=== PATIENT | male | born 1980 | race Caucasian/White ===

== ENCOUNTER 2017-05-30 12:32 | Emergency (ER) | payer MEDICAID, OTHER ==
[2017-05-30] MEDS ORDERED: ONDANSETRON ODT 4 MG TAB PO STA (13:21)
[2017-05-30] MEDS ORDERED: IBUPROFEN 800 MG TAB PO STA (13:21)
[2017-05-30] MEDS ORDERED: ACETAMINOPHEN TAB 500 MG TAB PO STA (13:21)
--- NOTE | 2017-05-30 13:25 | ED ---
General Adult HPI - General Chief complaint: Upper Respiratory Infection Stated complaint: Fever, Congested Time Seen by Provider: 05/30/17 13:09 Source: patient Mode of arrival: wheelchair Limitations: no limitations - History of Present Illness Initial comments: Patient is a 36-year-old previously healthy male who presents with a chief complaint of an upper respiratory infection and fever for 4 days. The patient states that his symptoms started with cough and headache, and later developed a fever. Patient states that his highest fever at home with 103. Patient states that today he had a fever when he woke up however it is resolved on its own without any medication. He cannot identify any inciting incidences. The patient notes that his headache is exacerbated when he coughs. There are no alleviating factors. Timing is been constant. - Related Data Home Medications Medication Instructions Recorded Confirmed Acetaminophen Tab [Tylenol Tab] 1,000 mg PO Q6HR PRN 05/30/17 05/30/17 Buprenorphine HCl [Subutex] 8 mg SL DAILY 05/30/17 05/30/17 Citalopram Hydrobromide [CeleXA] 20 mg PO DAILY 05/30/17 05/30/17 Ibuprofen [Motrin] 400 mg PO Q6HR PRN 05/30/17 05/30/17 Previous Rx's Medication Instructions Recorded Ondansetron Odt [Zofran Odt] 4 mg PO Q8HR PRN #20 tab 05/30/17 Allergies Allergy/AdvReac Type Severity Reaction Status Date / Time Penicillins Allergy Unknown Verified 05/30/17 13:08 Review of Systems ROS Statement: Those systems with pertinent positive or pertinent negative responses have been documented in the HPI. ROS Other: All systems not noted in ROS Statement are negative. Constitutional: Reports: fever, chills ENT: Reports: throat pain Respiratory: Reports: cough Gastrointestinal: Reports: nausea Neurological: Reports: headache Past Medical History Past Medical History: No Reported History History of Any Multi-Drug Resistant Organisms: None Reported Past Surgical History: Orthopedic Surgery Additional Past Surgical History / Comment(s): left hand surgery Past Anesthesia/Blood Transfusion Reactions: No Reported Reaction Past Psychological History: No Psychological Hx Reported Smoking Status: Current every day smoker Past Alcohol Use History: None Reported Past Drug Use History: Marijuana - Past Family History Mother Family Medical History: Hypertension Additional Family Medical History / Comment(s): Mother is alive at age 52. Father Additional Family Medical History / Comment(s): Patient's father has been in senior living and he does not know anything about him. Brother(s) Additional Family Medical History / Comment(s): Patient has 1 brother that is healthy. He has one sister that is healthy. He has one son that is 18 years of age and is healthy. He has one daughter that his diabetes mellitus type 1 General Exam Limitations: no limitations General appearance: alert, in no apparent distress Head exam: Present: atraumatic, normocephalic Eye exam: Present: PERRL ENT exam: Present: normal oropharynx, mucous membranes moist, TM's normal bilaterally Neck exam: Present: normal inspection Respiratory exam: Present: normal lung sounds bilaterally Cardiovascular Exam: Present: regular rate, normal rhythm GI/Abdominal exam: Present: soft. Absent: distended, tenderness Back exam: Present: normal inspection Neurological exam: Present: alert, altered Psychiatric exam: Present: normal affect, normal mood, depressed Skin exam: Present: warm, dry, intact Course Vital Signs 05/30/17 05/30/17 05/30/17 12:46 14:15 14:17 Temperature 98.8 F Pulse Rate 76 Respiratory 18 18 18 Rate Blood Pressure 116/79 O2 Sat by Pulse 100 Oximetry Medical Decision Making - Medical Decision Making Patient presents with a chief complaint of fever and upper respiratory symptoms for 4 days. Patient will go for a chest x-ray and had a flu PCR. He was given Motrin and Tylenol and Zofran. On initial evaluation, vital signs are stable, patient is in no acute distress. 2:34 PM Chest x-ray shows no acute process. Influenza A is positive. Discussed the results of the patient, he states he is feeling much better after Tylenol, Motrin, and Zofran. At this time is stable for discharge, I will write him a prescription for Zofran for outpatient use. He is instructed to follow up with primary care return to the emergency department if symptoms worsen. - Lab Data Lab Results 05/30/17 Range/Units 13:55 Influenza Type A RNA Detected H (Not Detectd) Influenza Type B (PCR) Not Detected (Not Detectd) Disposition Clinical Impression: Influenza Disposition: HOME SELF-CARE Instructions: Influenza (ED) Referrals: None,Stated [Primary Care Provider] - 1-2 days
--- NOTE | 2017-05-30 14:20 | XR ---
EXAMINATION TYPE: XR chest 2V DATE OF EXAM: 05/30/2017 COMPARISON: NONE HISTORY: Cough congestion and fever. Chest pain for water. TECHNIQUE: Frontal and lateral views of the chest are obtained. FINDINGS: There is no focal air space opacity, pleural effusion, or pneumothorax seen. The cardiac silhouette size is within normal limits. The osseous structures are intact. IMPRESSION: No acute process identified.
[2017-05-30 15:31] VITALS: BP 132/78; PULSE 80; RESP 16; TEMP 97.8
== END 2017-05-30 15:03 | disposition home or self-care (01) ==
LOC: EC 12:32
DX: J11.1 Influenza due to unidentified influenza virus with other respiratory manifestations (principal); F17.200 Nicotine dependence, unspecified, uncomplicated; Z79.899 Other long term (current) drug therapy; Z88.0 Allergy status to penicillin
CPT/HCPCS: 71046; 87502; 99283

== ENCOUNTER → 2022-02-12 | Outpatient (CLI) | payer OTHER ==
--- NOTE | 2022-02-12 16:47 | NM ---
EXAMINATION TYPE: NM hepatobiliary w CCK DATE OF EXAM: 02/12/2022 COMPARISON: Gallbladder ultrasound 01/13/2022. HISTORY: R10.11 RUQ TECHNIQUE: After the intravenous administration of 5.1 mCi Tc 99m Mebrofenin hepatobiliary scintigrap hy is performed. Immediate images post injection. FINDINGS: There is satisfactory initial accumulation of tracer by the liver. The gallbladder is visualized wit hin 10 minutes. The small bowel activity is noted within 14 minutes. At one hour CCK was adminis tered, patient was injected with 1.49 mcg of Kinevac, and gallbladder ejection fraction is calculated at 70 %, in the normal range. Therefore there is no scintigraphic evidence of cystic or common b ile duct obstruction to suggest acute cholecystitis or gallbladder dyskinesia. IMPRESSION: Exam is within normal limits.
== END | disposition home or self-care (01) ==
LOC: RADNMMAIN 12:33
PROVIDERS: ATTEND Surgery
DX: R10.11 Right upper quadrant pain (principal)
CPT/HCPCS: 78227; A9537; J2805

== ENCOUNTER 2022-03-12 07:48 | Day surgery (SDC) | payer OTHER ==
[~2022-03-12 07:48] MED LIST: LIDOCAINE 1% (10MG/ML) FOR IV START INTRADERMA PRN
[2022-03-12 08:16] VITALS: TEMP 97.3
[2022-03-12] MEDS: LACTATED RINGERS 1,000 ML IV SCH ×2 (08:26→09:00)
[2022-03-12] MEDS ORDERED: MIDAZOLAM 2 MG/2 ML VIAL ONE (09:01)
[2022-03-12] MEDS ORDERED: LIDOCAINE 2% INJ 20 MG/ML (2 ML VIAL) ONE (09:01)
[2022-03-12] MEDS ORDERED: PROPOFOL 10 MG/ML 20 ML VIAL IV ONE (09:01)
--- NOTE | 2022-03-12 09:02 | P.GSHP ---
History of Present Illness H&P Date: 03/12/22 Chief Complaint: Epigastric pain Is a 41-year-old male presents safer EGD. He has issues epigastric pain. He'll undergo EGD evaluate for possible gastritis Past Medical History Past Medical History: No Reported History Additional Past Medical History / Comment(s): RUQ pain last 3 months History of Any Multi-Drug Resistant Organisms: None Reported Past Surgical History: Orthopedic Surgery Additional Past Surgical History / Comment(s): left hand surgery Past Anesthesia/Blood Transfusion Reactions: No Reported Reaction Smoking Status: Current every day smoker - Past Family History Mother Family Medical History: Hypertension Additional Family Medical History / Comment(s): Mother is alive at age 52. Father Additional Family Medical History / Comment(s): Patient's father has been in alf and he does not know anything about him. psych issues Brother(s) Additional Family Medical History / Comment(s): Patient has 1 brother that is he karl. He has one sister that is healthy. He has one son that is 18 years of age and is healthy. He has one daughter that his diabetes mellitus type 1 Medications and Allergies Home Medications Medication Instructions Recorded Confirmed Type Buprenorphine-Nalox 8-2 mg Tab 2 tab SUBLINGUAL BID 01/12/22 03/12/22 History [Suboxone 8-2 mg Tab] Cholecalciferol [Vitamin D3 (125 250 mcg PO DAILY 01/12/22 03/12/22 History Mcg = 5000 Iu)] Multivitamins, Thera [Multivitamin 1 tab PO DAILY 01/12/22 03/12/22 History (formulary)] Allergies Allergy/AdvReac Type Severity Reaction Status Date / Time Penicillins Allergy Unknown Verified 03/10/22 12:55 Childhood Surgical - Exam Vital Signs Temp Pulse Resp BP Pulse Ox 97.3 F L 69 18 139/78 100 03/12/22 08:14 03/12/22 08:14 03/12/22 08:14 03/12/22 08:14 03/12/22 08:14 - General well developed - Eyes PERRL - ENT normal pinna - Neck no masses - Respiratory normal expansion - Cardiovascular Rhythm: regular - Abdomen Abdomen: soft, non tender Assessment and Plan Assessment: Epigastric pain, gastritis. Perform EGD.
--- NOTE | 2022-03-12 09:12 | P.OP ---
Date of Procedure: 03/12/22 Preoperative Diagnosis: Epigastric pain Postoperative Diagnosis: Mild antral gastritis Mild esophagitis Procedure(s) Performed: EGD Anesthesia: MAC Surgeon: Ata Lan Pathology: other (Antrum, esophagus) Condition: stable Disposition: PACU Description of Procedure: Patient's placed on the endoscopy table in the lateral position. He received IV sedation. The gastroscope placed oropharynx passed in the esophagus and stomach. Scope was pylorus. The first and second portion of the duodenum appe ared normal. Scope summer back the antrum this appeared mildly inflamed. A biopsies performed. Scope was then retroflexed and the remainder the stomach appeared normal. The GE junction was at 40 cm per the distal esophagus appeared minimally inflamed and a biopsies performed. The proximal esophagus appeared normal. Scope withdrawn for patient.
[2022-03-12 09:33] VITALS: BP 118/74; PULSE 57; RESP 16
== END 2022-03-12 10:03 | disposition home or self-care (01) ==
LOC: ORWHC2ENDO 07:48
PROVIDERS: ATTEND Surgery
DX: K29.50 Unspecified chronic gastritis without bleeding (principal); K20.90 Esophagitis, unspecified without bleeding; Z88.0 Allergy status to penicillin; F17.200 Nicotine dependence, unspecified, uncomplicated; Z82.49 Family history of ischemic heart disease and other diseases of the circulatory system
CPT/HCPCS: 88305; 43239; J2250; J2704; J2001

== ENCOUNTER 2024-12-04 18:15 | Emergency (ER) | payer OTHER ==
[2024-12-04 18:34] VITALS: RESP 16
[2024-12-04] MEDS: PROPARACAINE 0.5% OPHTH DROPS 15 ML BTL RIGHT EYE STA (20:02)
[2024-12-04] MEDS: FLUORESCEIN STRIPS 1 MG STRIP RIGHT EYE ONE (20:02)
--- NOTE | 2024-12-04 20:29 | ED ---
Eye Problem HPI - General Chief complaint: Eye Problems Stated complaint: R eye issue Time Seen by Provider: 12/04/24 18:32 Source: patient, RN notes reviewed Mode of arrival: ambulatory Limitations: no limitations - History of Present Illness Initial comments: This is a 44-year-old male presenting for right eye injury/pain (09/30) occurring at 1200 today. Patient states he was working outdoors when he accidentally struck the claw of his hammer with his hand, causing the mud covered handle to fly upwards into his right eye with subsequent pain. Patient endorses subsequent foreign body sensation despite copious eye irrigation at home. Denies use of contacts and states tetanus vaccination is up-to-date. Denies significant change in vision or pain/limitations with eye movement. MD chief complaint: eye pain, eye injury, foreign body Onset/Timin -: hour(s) Onset Description: sudden Location: right eye Place: street/outdoors If Injury: direct trauma Eye Symptoms: burning, redness, pain, foreign body sensation Severity scale (1-10): 5 If Pain, Quality: aching Consistency: intermittent Associated Symptoms: none Treatments Prior to Arrival: irrigated eye - Related Data Home Medications Medication Instructions Recorded Confirmed Buprenorphine-Nalox 8-2 mg Tab 2 tab SUBLINGUAL BID 01/12/22 03/12/22 [Suboxone 8-2 mg Tab] Cholecalciferol [Vitamin D3 (125 250 mcg PO DAILY 01/12/22 03/12/22 Mcg = 5000 Iu)] Multivitamins, Thera [Multivitamin 1 tab PO DAILY 01/12/22 03/12/22 (formulary)] Previous Rx's Medication Instructions Recorded Ibuprofen [Motrin] 800 mg PO Q8HR PRN #30 tab 12/04/24 Polymyxin B-Trimeth Sulf Ophth 1 drops BOTH EYES Q3H #10 ml 12/04/24 [Polytrim Opthalmic] Allergies Allergy/AdvReac Type Severity Reaction Status Date / Time Penicillins Allergy Unknown Verified 12/04/24 18:35 Childhood Review of Systems ROS Statement: Those systems with pertinent positive or pertinent negative responses have been documented in the HPI. ROS Other: All systems not noted in ROS Statement are negative. Past Medical History Past Medical History: No Reported History Additional Past Medical History / Comment(s): RUQ pain last 3 months History of Any Multi-Drug Resistant Organisms: None Reported Past Surgical History: Orthopedic Surgery Additional Past Surgical History / Comment(s): left hand surgery Past Anesthesia/Blood Transfusion Reactions: No Reported Reaction Past Psychological History: No Psychological Hx Reported Smoking Status: Current every day smoker - Past Family History Mother Family Medical History: Hypertension Additional Family Medical History / Comment(s): Mother is alive at age 52. Father Additional Family Medical History / Comment(s): Patient's father has been in correction and he does not know anything about him. psych issues Brother(s) Additional Family Medical History / Comment(s): Patient has 1 brother that is healthy. He has one sister that is healthy. He has one son that is 18 years of age and is healthy. He has one daughter that his diabetes mellitus type 1 General Exam Limitations: no limitations General appearance: alert, in no apparent distress Head exam: Present: atraumatic, normocephalic, normal inspection Eye exam: Present: normal appearance, PERRL, EOMI, conjunctival injection, other (No obvious foreign body seen over cornea/conjunctiva or beneath eyelids. Sandy lamp reveals small corneal abrasions at 12:00 and 5:00 positions of cornea. Negative Arya sign or herpetic lesions.). Absent: scleral icterus, periorbital swelling, periorbital tenderness Pupils: Present: normal accommodation, other (Attempted tonometer measurement with device not working correctly. Snellen chart: Right eye20/70, left eye20/40) ENT exam: Present: normal exam, mucous membranes moist Neck exam: Present: normal inspection. Absent: tenderness, meningismus, lymphadenopathy Respiratory exam: Present: normal lung sounds bilaterally. Absent: respiratory distress, wheezes, rales, rhonchi, stridor Cardiovascular Exam: Present: regular rate, normal rhythm, normal heart sounds. Absent: systolic murmur, diastolic murmur, rubs, gallop, clicks GI/Abdominal exam: Present: soft, normal bowel sounds. Absent: distended, tenderness, guarding, rebound, rigid Extremities exam: Present: normal inspection, full ROM, normal capillary refill. Absent: tenderness, pedal edema, joint swelling, calf tenderness Back exam: Present: normal inspection Neurological exam: Present: alert, oriented X3, CN II-XII intact Psychiatric exam: Present: normal affect, normal mood Skin exam: Present: warm, dry, intact, normal color. Absent: rash Course Vital Signs 12/04/24 12/04/24 18:32 20:46 Temperature 98.0 F 97.5 F L Pulse Rate 79 58 L Respiratory 16 16 Rate Blood Pressure 149/79 144/98 O2 Sat by Pulse 100 100 Oximetry Procedures - Forgein Body Removal Eye Site: Right Anesthetic Used: Proparacaine Eye Exam Technique: Sandy Lamp, Fluorescein Foreign Body Suspected: Other Forgein Body Removal Technique: Cotton Swab, Irrigation Remaining Debris: No (No visible debris/foreign body both before and after irrigation.) Patient Tolerated: no complications Additional Comments: Foreign body sensation persists, resolved with proparacaine. Cold compress provided Medical Decision Making - Medical Decision Making Was pt. sent in by a medical professional or institution (JOSÉ ANTONIO Estrella, MOLDING MANAGER, urgent care, hospital, or [facility]...) When possible be specific @ -No Did you speak to anyone other than the patient for history (EMS, parent, family, police, friend...)? What history was obtained from this source @ -No Did you review nursing and triage notes (agree or disagree)? Why? @ -I reviewed and agree with nursing and triage notes Were old charts reviewed (outside hosp., previous admission, EMS record, old EKG, old radiological studies, urgent care reports/EKG's, [facility] records)? Report findings @ -No old charts were reviewed Differential Diagnosis (chest pain, altered mental status, abdominal pain women, abdominal pain men, vaginal bleeding, weakness, fever, dyspnea, syncope, headache, dizziness, GI bleed, back pain, seizure, CVA, palpatations, mental health, musculoskeletal)? @ -Eye foreign body, corneal abrasion, conjunctivitis, episcleritis, glaucoma, iritis, this is an exhaustive list EKG interpreted by me (3pts min.). @ -Not done X-rays interpreted by me (1pt min.). @ -None done CT interpreted by me (1pt min.). @ -None done U/S interpreted by me (1pt. min.). @ -None done What testing was considered but not performed or refused? (CT, X-rays, U/S, labs)? Why? @ -None What meds were considered but not given or refused? Why? @ -None Did you discuss the management of the patient with other professionals (professionals i.e. , PA, MOLDING MANAGER, lab, RT, psych nurse, social media content manager, school secretary, teacher, chief quality officer, onsite case manager)? Give summary @ -No Was smoking cessation discussed for >3mins.? @ -No Was critical care preformed (if so, how long)? @ -No Were there social determinants of health that impacted care today? How? (Homelessness, low income, unemployed, alcoholism, drug addiction, transportation, low edu. Level, literacy, decrease access to med. care, senior care, rehab)? @ -No Was there de-escalation of care discussed even if they declined (Discuss DNR or withdrawal of care, Hospice)? DNR status @ -No What co-morbidities impacted this encounter? (DM, HTN, Smoking, COPD, CAD, Cancer, CVA, ARF, Chemo, Hep., AIDS, mental health diagnosis, sleep apnea, morbid obesity)? @ -None Was patient admitted / discharged? Hospital course, mention meds given and route, prescriptions, significant lab abnormalities, going to OR and other pertinent info. @ -I extensively visually examined for any potential foreign body with no significant discovery found around cornea or beneath eyelids. I flushed copiously with normal saline with foreign body sensation persisting. Patient notes pain relief with proparacaine drop. Sandy lamp examination reveals small corneal abrasions that 12 and 5:00 positions on cornea over iris without Arya sign. Some change in vision noted in patient's right eye. Patient provided Polytrim eyedrops and additional drops sent to patient's pharmacy. Advised to continue irrigating high at home as needed for any ongoing foreign body sensation. Follow-up with ophthalmology in the next 24-48 hours if pain and vision do not improve. Discussed patient with Dr. Suggs. Undiagnosed new problem with uncertain prognosis? @ -No Drug Therapy requiring intensive monitoring for toxicity (Heparin, Nitro, Insulin, Cardizem)? @ -No Were any procedures done? @ -Right eye flushed copiously with normal saline with foreign body sensation persisting. See procedure note Diagnosis/symptom? @ -Corneal abrasion, foreign body of eye Acute, or Chronic, or Acute on Chronic? @ -Acute Uncomplicated (without systemic symptoms) or Complicated (systemic symptoms)? @ -Uncomplicated Side effects of treatment? @ -No Exacerbation, Progression, or Severe Exacerbation? @ -No Poses a threat to life or bodily function? How? (Chest pain, USA, MD, pneumonia, PE, COPD, DKA, ARF, appy, cholecystitis, CVA, Diverticulitis, Homicidal, Suicidal, threat to staff... and all critical care pts) @ -No Disposition Clinical Impression: Corneal abrasion, Foreign body sensation, right eye Disposition: HOME SELF-CARE Condition: Fair Instructions (If sedation given, give patient instructions): Eye Wash (Into the eye), Abrasion (ED) Additional Instructions: Alternate Tylenol/Motrin every 4 hours for pain. Continue flushing eye at home for any ongoing foreign body sensation. May apply cold compress for 10 minutes up to 4 times daily. Apply antibiotic drop to right eye every 3 hours while awake for 7 days. Follow-up with ophthalmology for any ongoing foreign body sensation. Prescriptions: Ibuprofen [Motrin] 800 mg PO Q8HR PRN #30 tab PRN Reason: Pain Polymyxin B-Trimeth Sulf Ophth [Polytrim Opthalmic] 1 drops BOTH EYES Q3H #10 ml Is patient prescribed a controlled substance at d/c from ED?: No Referrals: Anton Schreiber MD [Primary Care Provider] - 1-2 days Lilliam Perez MD [STAFF PHYSICIAN] - 1-2 days Time of Disposition: 20:28
[2024-12-04] MEDS: IBUPROFEN 800 MG TAB PO STA (20:43)
[2024-12-04] MEDS: POLYMYXIN B-TRIMETHOPRIM SULF (10,000-1) OPHTH DROPS 10 ML BTL RIGHT EYE STA (20:43)
[2024-12-04 21:03] VITALS: BP 144/98; PULSE 58; TEMP 97.5
== END 2024-12-04 20:46 | disposition home or self-care (01) ==
LOC: EC 18:15
DX: S05.01XA Injury of conjunctiva and corneal abrasion without foreign body, right eye, initial encounter (principal); F17.200 Nicotine dependence, unspecified, uncomplicated; Z88.0 Allergy status to penicillin; W44.9XXA Unspecified foreign body entering into or through a natural orifice, initial encounter
CPT/HCPCS: 65222; 99283